=== PATIENT | male | born 1955 | race Caucasian/White ===

== ENCOUNTER 2018-04-25 08:15 | Observation (INO) | payer OTHER ==
[2018-04-25] VITALS (7 sets, daily range): BP systolic 108–111; BP diastolic 56–62
[~2018-04-25] VITALS: Ht 182.9 cm; Wt 122.5 kg
[~2018-04-25 08:15] MED LIST: ASPIRIN BUFFER325 MG PO; CRESTOR10 MG PO; EFFIENT10 MG PO; FUROSEMIDE40 MG PO; GLIMEPIRIDE2 MG PO; LEVEMIR 3M100 UNITS/ SQ; LOSARTAN-HCTZ1 EAC2 PO; METOPROLOL TART25 MG PO; POTASSIUM CHLO10 MEQ PO
[2018-04-25] MEDS ORDERED: MELOXICAM7.5 MG PO (09:06)
[2018-04-25] MEDS ORDERED: XIGDUO PO (09:06)
[2018-04-25] MEDS ORDERED: TRESIBA SQ (09:06)
[2018-04-25 09:18] LABS: BASOPHILS % 0.4 % (0.0-1.0); EOSINOPHILS # (AUTO) 0.1 (0.0-0.4); HEMATOCRIT 43.8 % (38.2-49.6); LYMPHOCYTES # (AUTO) 1.3 (1.0-3.2); LYMPHOCYTES % 19.2 % (18.0-39.1); MEAN CORPUSCULAR HEMOGLOBIN 33.5 pg (28-32); MEAN CORPUSCULAR HGB CONC 36.5 g/dL (31-35); MEAN CORPUSCULAR VOLUME 91.6 fL (81-99); MONOCYTES # (AUTO) 0.6 (0.2-0.8); MONOCYTES % 8.5 % (4.4-11.3); NEUTROPHILS # (AUTO) 4.8 (2.1-6.9); NEUTROPHILS % 70.8 % (38.7-80.0); PLATELET COUNT 196 x10e3/uL (140-360); RED BLOOD COUNT 4.78 x10e6/uL (4.3-5.7); RED CELL DISTRIBUTION WIDTH 11.8 % (11.7-14.4)
[2018-04-25 09:28] LABS: INR 1.06
[2018-04-25 09:29] LABS: PARTIAL THROMBOPLASTIN TIME 29.9 seconds (23.8-35.5)
[2018-04-25 09:40] LABS: ALANINE AMINOTRANSFERASE 24 IU/L (0-55); ALBUMIN 4.2 g/dL (3.5-5.0); ALBUMIN/GLOBULIN RATIO 1.6 (0.8-2.0); ALKALINE PHOSPHATASE 77 IU/L (40-150); ANION GAP 15.2 mmol/L (8-16); BLOOD UREA NITROGEN 15 mg/dL (7-26); BUN/CREATININE RATIO 18 (6-25); CALCIUM 9.5 mg/dL (8.4-10.2); CARBON DIOXIDE 32 mmol/L (22-29); CHLORIDE 98 mmol/L (98-107); CREATININE, SERUM 0.83 mg/dL (0.72-1.25); EST GLOMERULAR FILTRATION RATE > 60 ML/MIN (60-); GLUCOSE 165 mg/dL (74-118); POTASSIUM 4.2 mmol/L (3.5-5.1); SODIUM 141 mmol/L (136-145)
[2018-04-25] MEDS: ENOXAPARIN SODIUM INJ 100 MG/ML SYR SC SCH ×2 (09:54→21:25)
[2018-04-25 10:26] LABS: CREATINE KINASE 121 IU/L (30-200)
[2018-04-25] MEDS ORDERED: NITROGLYCERIN 0.4 MG SUBL SL PRN (11:00)
[2018-04-25] MEDS ORDERED: MORPHINE SULFATE 2 MG/ML SYR IV PRN (11:00)
[2018-04-25] MEDS ORDERED: SODIUM CHLORIDE FLUSH 10 ML SYR INJ PRN (11:00)
[2018-04-25] MEDS ORDERED: ENOXAPARIN SODIUM INJ 100 MG/ML SYR SC SCH (11:00)
[2018-04-25] MEDS ORDERED: ONDANSETRON HCL INJ 2 MG/ML VIAL IV PRN (11:00)
--- NOTE | 2018-04-25 11:17 | Diagnostic Imaging Report ---
PROCEDURE: Frontal and lateral views of the chest. COMPARISON: DX, CHEST SINGLE, 01/03/2012, 18:20. INDICATIONS: CHEST PAIN X 1 DAY FINDINGS: Lines/tubes: None. Lungs: The lungs are well inflated and clear. There is no evidence of pneumonia or pulmonary edema. Pleura: There is no pleural effusion or pneumothorax. Heart and mediastinum: The heart and the mediastinum are normal. Bones: No acute bony abnormality. IMPRESSION: 1. No acute cardiopulmonary disease. Marbella Cabezas M.D. Dictated by: Marbella Cabezas M.D. on 04/25/2018 at 11:21 Electronically approved by: Marbella Cabezas M.D. on 04/25/2018 at 11:21
[2018-04-25] MEDS: FAMOTIDINE 20 MG TAB PO SCH ×3 (11:27→16:45)
[2018-04-25] MEDS: NITROGLYCERIN 2% OINT 1 GM PKT TOP SCH ×2 (11:27→18:05)
[2018-04-25] MEDS: METOPROLOL TARTRATE 25 MG TAB PO SCH ×2 (11:27→21:00)
[2018-04-25] MEDS ORDERED: DEXTROSE 50% SYRINGE 50 ML IV PRN (11:30)
[2018-04-25] MEDS: INSULIN REGULAR, HUMAN 100 UNIT/1 ML 3ML VIAL SQ SCH ×3 (11:30→21:26)
[2018-04-25 17:38] LABS: CREATINE KINASE MB 3.4 ng/mL (0-5.0)
[2018-04-25] MEDS ORDERED: SIMVASTATIN 20 MG TAB PO SCH (21:00)
[2018-04-25 23:59] LABS: CREATINE KINASE MB 3.6 ng/mL (0-5.0)
[2018-04-26] VITALS: BP 100/56
[2018-04-26 06:16] LABS: BASOPHILS % 0.5 % (0.0-1.0); EOSINOPHILS # (AUTO) 0.1 (0.0-0.4); EOSINOPHILS % 1.3 % (0.0-6.0); HEMATOCRIT 40.5 % (38.2-49.6); HEMOGLOBIN 14.7 g/dL (14.0-18.0); LYMPHOCYTES % 31.1 % (18.0-39.1); MEAN CORPUSCULAR HEMOGLOBIN 33.2 pg (28-32); MEAN CORPUSCULAR HGB CONC 36.3 g/dL (31-35); MEAN CORPUSCULAR VOLUME 91.4 fL (81-99); MONOCYTES # (AUTO) 0.6 (0.2-0.8); MONOCYTES % 8.6 % (4.4-11.3); NEUTROPHILS # (AUTO) 3.7 (2.1-6.9); NEUTROPHILS % 58.3 % (38.7-80.0); PLATELET COUNT 178 x10e3/uL (140-360); RED BLOOD COUNT 4.43 x10e6/uL (4.3-5.7); RED CELL DISTRIBUTION WIDTH 11.7 % (11.7-14.4)
[2018-04-26 06:31] LABS: BLOOD UREA NITROGEN 18 mg/dL (7-26); BUN/CREATININE RATIO 25 (6-25); CALCIUM 9.5 mg/dL (8.4-10.2); CARBON DIOXIDE 29 mmol/L (22-29); CHLORIDE 98 mmol/L (98-107); CHOLESTEROL 113 MD/DL (0-199); CREATININE, SERUM 0.71 mg/dL (0.72-1.25); EST GLOMERULAR FILTRATION RATE > 60 ML/MIN (60-); GLUCOSE 122 mg/dL (74-118); SODIUM 138 mmol/L (136-145); TRIGLYCERIDES 158 MG/DL (0-149)
[2018-04-26 06:32] LABS: CHOL/HDL RATIO 3.5 (3.9-4.7); HDL CHOLESTEROL 32 MG/DL (40-60); LDL CHOLESTEROL 49 MG/DL (60-130)
[2018-04-26] MEDS: NITROGLYCERIN 2% OINT 1 GM PKT TOP SCH ×3 (06:37→12:00)
[2018-04-26 07:49] LABS: CREATINE KINASE 103 IU/L (30-200)
[2018-04-26 07:51] VITALS: BP 125/58
[2018-04-26] MEDS: FAMOTIDINE 20 MG TAB PO SCH (08:37)
[2018-04-26] MEDS: METOPROLOL TARTRATE 25 MG TAB PO SCH (08:38)
--- NOTE | 2018-04-26 08:55 | Consultation ---
DATE OF CONSULTATION: April 25, 2018 CARDIOLOGY CONSULTATION REASON FOR CONSULTATION: Chest pain. HPI: This is a 63-year-old male that presented with chest pain. According to the patient, for the last week he has been having difficulty with breathing that has been going off and on for several weeks now. He stated that it gets real worse taking a deep breath and is relieved with movement. He stated that he is being followed up by a gas maker. He has a history of DC in the past medical with stent placement. He stated he has been off and on with his medications. He smokes occasionally. He denies any palpitation, any dizziness, any diaphoresis, or headache. Troponin times 3 was negative. EKG showed normal sinus rhythm with no S/T abnormalities. BNP was 54. PAST MEDICAL HISTORY: Obesity, hypertension, diabetes, CAD, hyperlipidemia, chronic shortness of breath due to right rib pain that has been going on for over 30 years, and diverticulitis. PAST SURGICAL HISTORY: Appendectomy, cardiac catheterization with stent placement, hernia repair, colon resection, and going through pain management with rib doctor. FAMILY HISTORY: Positive for CAD. SOCIAL HISTORY: He lives at home alone and smokes occasionally. MEDICATIONS: See med list. ALLERGIES: HE IS ALLERGIC TO PENICILLIN. REVIEW OF SYSTEMS: Negative except those mentioned above. PHYSICAL EXAMINATION VITAL SIGNS: Temperature 97, heart rate 76, blood pressure 100/56, respirations 18, oxygen saturation 97% on room air. GENERAL: He is obese, awake, alert, and oriented times 3. HEENT: Mucous membrane moist. NECK: Supple. LUNGS: Bilateral clear to auscultation. CARDIOVASCULAR: S1 and S2 present. ABDOMEN: Soft. NEUROLOGIC: Intact. EXTREMITIES: With no edema. LABS: Sodium 138, potassium 4, chloride 98, CO2 29, BUN 18, creatinine 0.71, glucose 122. White blood cells 6.36, hemoglobin 14.7, hematocrit 40.5, and platelets 178,000. PT 13, PTT 29.9 and INR 1.06. IMPRESSION 1. Chest pain with shortness of breath. 2. Coronary artery disease with stent. 3. Diabetes. 4. Hypertension. 5. Hyperlipidemia. 6. Possible musculoskeletal pain due to chronic rib problems and obesity. ASSESSMENT AND PLAN: He had an echocardiogram done with normal EF. Troponin times 3 was negative. Wanted to do a cardiac stress test on him, but he wanted to go home and follow up as an outpatient. Will go ahead and continue his home medications. Will continue statin, beta juan and Lasix. Further cardiac workup pending clinical course. Thank you for this consultation. DICTATED BY JOSE SETH NP Job#: [id number] [place]
[2018-04-26] MEDS: ENOXAPARIN SODIUM INJ 100 MG/ML SYR SC SCH (08:56)
[2018-04-26] MEDS ORDERED: ASPIRIN 325 MG TAB EC PO SCH (09:00)
[2018-04-26] MEDS ORDERED: POTASSIUM CHLORIDE 10 MEQ TABCR PO SCH (09:00)
[2018-04-26] MEDS ORDERED: XIGDUO PO SCH ×2 (09:00)
[2018-04-26] MEDS ORDERED: FUROSEMIDE 40 MG TAB PO SCH (09:00)
[2018-04-26] MEDS ORDERED: HYDROCHLOROTHIAZIDE 25 MG TAB PO SCH (09:00)
[2018-04-26] MEDS ORDERED: TRESIBA 20 UNIT SC SCH (09:00)
[2018-04-26] MEDS ORDERED: LOSARTAN POTASSIUM 100 MG TAB PO SCH (09:00)
[2018-04-26] MEDS ORDERED: MELOXICAM 7.5 MG TAB PO SCH (09:00)
[2018-04-26] MEDS ORDERED: ASPIRIN 81 MG ENTERIC COATED PO SCH (09:00)
[2018-04-26] MEDS: INSULIN REGULAR, HUMAN 100 UNIT/1 ML 3ML VIAL SQ SCH ×2 (09:18→14:34)
[2018-04-26 09:34] VITALS: BP 125/58
[2018-04-26 11:56] VITALS: BP 123/55
--- NOTE | 2018-04-26 13:17 | History and Physical ---
CHIEF COMPLAINT: Left-sided chest discomfort. HISTORY OF PRESENT ILLNESS: This is a 63-year-old white man who states that for at least 6 years he has had difficulty taking deep breaths. The patient states he has undergone musculoskeletal manipulations by chiropractors, which have been somewhat helpful for his condition. The patient states these symptoms seem to have occurred when he underwent coronary artery stent placement in 2011. The patient states that on night, April 24, 2018, one night prior to being admitted, not only did his shortness of breath worsen with inspiration, but he had left-sided chest tightness. The patient states that the chest discomfort was similar to the discomfort he experienced in 2011 when he underwent coronary stent placement. A 12-lead EKG done in the emergency room did not reveal any acute ischemia, but it did reveal chronic ischemic changes. The patient's cardiac enzymes have been unremarkable during this hospitalization. The patient's renal function has been normal during this hospitalization. The patient states the left-sided chest pain has actually resolved. The patient was also seen by cardiology during this hospitalization, but CT of the chest with intravenous contrast was ordered to assess for any pulmonary embolism. Chest x-ray done on admission was unremarkable. REVIEW OF SYSTEMS GENERAL: Weight has been stable. No fever or chills. HEENT: No headaches. No visual changes. CARDIOVASCULAR/RESPIRATORY: Difficulty with initiating deep breaths, which is a chronic issue, but became worse the night prior to admission. The patient also stated that 1 night prior to admission he began experiencing left-sided pleuritic chest pain. Denies any cough or chest congestion. GI: No nausea, vomiting, diarrhea, or constipation. : No BPH or UTI symptoms. NEUROMUSCULAR: The patient states that he feels his left-sided chest discomfort, as well as the difficulty in taking deep breaths secondary to musculoskeletal issues, possibly inflamed left-sided rib. ALLERGIES: PENICILLIN. FAMILY HISTORY: Father had coronary artery disease. In fact, his father underwent coronary artery bypass grafting. SOCIAL HISTORY: The man is single. Lives alone. The patient states he is retired. No history of tobacco. The patient states he quit smoking tobacco and drinking alcohol many years ago. PAST MEDICAL HISTORY 1. Coronary artery disease (coronary artery stent placement in 2011). 2. Obesity. 3. Hypertensive heart disease. 4. Hyperlipidemia. 5. Type 2 diabetes mellitus. MEDICATIONS 1. Aspirin 325 mg daily. 2. Furosemide 40 mg daily. 3. Losartan with hydrochlorothiazide 100 per 12.5 mg daily. 4. Meloxicam 7.5 mg once daily. 5. Potassium chloride 10 mEq daily. 6. Rosuvastatin 200 mg at bedtime. 7. Tresiva insulin 20 units subcutaneous daily. PHYSICAL EXAMINATION GENERAL: He is awake, alert and is pleasant and cooperative with exam. VITALS: Height is 6 feet 0 inches, weight 270 pounds, BMI 36, blood pressure 123/55, pulse 60, respiratory rate 18, temperature 97.3, oxygen saturation 95% on room air. INTEGUMENT: Skin is warm and dry. No pallor or diaphoresis. HEENT: Anicteric sclerae. Moist mucous membranes. NECK: Supple. No evidence of jugular venous distention. CARDIOVASCULAR: Distant heart sounds. Regular rate and rhythm. LUNGS: No rales. No rhonchi or wheezes. ABDOMEN: Obese and benign. EXTREMITIES: No edema or deformity. NEUROLOGIC: Intact. IMPRESSION 1. Atypical chest pain. 2. Coronary artery disease (coronary stents placed in 2011). 3. Diabetes mellitus. 4. Obesity: Body mass index 36. PLAN 1. Rule out myocardial infarction. 2. Agree with cardiology's plan for CT angiogram of the chest to rule out pulmonary embolism. 3. Continue aspirin. 4. Patient will benefit from an exercise stress test in the near future. I spent 40 minutes in the care of this patient. Job#: [id number] MARC[facility]
--- NOTE | 2018-04-26 14:03 | Diagnostic Imaging Report ---
EXAM: CT Chest WITH contrast 04/26/2018 11:38 AM INDICATION: Shortness of breath. \S\r/o PE COMPARISON: Chest x-ray 04/25/2018 TECHNIQUE: Chest was scanned utilizing a multidetector helical scanner from the lung apex through the level of the adrenal glands without administration of IV contrast. Coronal and sagittal reformations were obtained. Routine protocol was performed. IV CONTRAST: 100 mL of Isovue 370 COMPLICATIONS: None RADIATION DOSE: Total DLP: 650.77 mGy*cm Estimated effective dose: (DLP x 0.014 x size factor) mSv CTDIvol has been reviewed. It is below the limits set by the Radiation Protocol Committee (RPC). FINDINGS: LINES/ TUBES: None. LUNGS AND AIRWAYS: Good contrast bolus. No pulmonary emboli. There is bibasilar dependent atelectasis. Few small 3 to 4 mm nodules. Right upper lobe (series 3 image 54). Right middle lobe (series 3 image 64). Airways are normal. PLEURA: The pleural spaces are clear. HEART AND MEDIASTINUM: The thyroid gland is normal. No mediastinal, hilar or axillary lymphadenopathy. The heart is normal in size. There is no pericardial effusion. Atherosclerotic aspirations and a coronary artery with severe in the LAD. Main pulmonary measures 3.4 cm. Ascending aorta measures 4.2 cm. UPPER ABDOMEN: Unremarkable. BONES: The visualized bony thorax is within normal limits. SOFT TISSUES: Unremarkable. IMPRESSION: 1. No pulmonary emboli. 2. A few small 3 to 4 mm nodules in the right upper and right middle lobes. These are nonspecific but may represent recent infection. Signed by: Dr. Nikko Medina M.D. on 04/26/2018 1:59 PM
--- NOTE | 2018-04-26 15:07 | Discharge Summary ---
ADMIT DIAGNOSES 1. Atypical chest pain. 2. Coronary artery disease (history of coronary stent placement in 2011). 3. Diabetes mellitus. 4. Obesity. Body mass index 36. DISCHARGE DIAGNOSES 1. Atypical chest pain, resolved. 2. Coronary artery disease (coronary stent placed in 2011). 3. Diabetes mellitus. 4. Obesity. Body mass index 36. HOSPITAL COURSE: This is a 63-year-old white male who was initially admitted to [facility] with the diagnosis of left-sided atypical chest pain. The patient underwent serial cardiac enzymes during this hospitalization, which did not reveal any acute myocardial ischemia or infarction. The patient's brief hospitalization was unremarkable. During this hospitalization, the patient was seen by cardiology, namely Dr. Bee. The patient stated that he was adamant about being discharged home. The patient's chest pain resolved during this hospitalization. During the hospital stay, the patient was found to have an LDL and HDL cholesterol of 49 and 32 mg/dL. The patient underwent a CT of the chest with intravenous contrast during this hospital stay, which did not reveal any evidence of pulmonary embolism, but did reveal nonspecific 3-4 mm nodules in the right upper and right middle lobes. The patient's hospitalization was unremarkable. CONDITION AT DISCHARGE: Stable. DISCHARGE MEDICATIONS 1. Aspirin 325 mg daily. 2. Furosemide 40 mg daily. 3. Losartan with hydrochlorothiazide 100 per 12.5 mg daily. 4. Meloxicam 7.5 mg daily. 5. Potassium chloride 10 mEq daily. 6. Rosuvastatin 20 mg at bedtime. 7. Tresiba insulin 20 units subcutaneous daily. FOLLOWUP INSTRUCTIONS: The patient was instructed to follow up with Dr. Bee, his cuff maker on Sunday, April 29, 2018, for an outpatient cardiac stress test. The patient was instructed to return to the nearest emergency room if he has any recurrence of chest discomfort or pain. FATEMEH JENSEN MD Job#: [id number] [place]
[2018-04-26] MEDS ORDERED: SODIUM CHLORIDE 0.9% 50ML 50 ML ONE (16:48)
[2018-04-26] MEDS ORDERED: IOPAMIDOL 370 MG/ML 200 ML INFUS..BTL INJ ONE (16:48)
== END 2018-04-26 15:30 | disposition home or self-care (01) ==
LOC: ER 08:15 → ERHOLD 11:03 → IMCU 12:39 → MED/SURG 17:23
DX: R07.89 Other chest pain (principal); I11.0 Hypertensive heart disease with heart failure; I50.9 Heart failure, unspecified; E11.9 Type 2 diabetes mellitus without complications; I25.10 Atherosclerotic heart disease of native coronary artery without angina pectoris; E78.5 Hyperlipidemia, unspecified; I11.9 Hypertensive heart disease without heart failure; Z95.5 Presence of coronary angioplasty implant and graft; E66.9 Obesity, unspecified; Z68.36 Body mass index [BMI] 36.0-36.9, adult; Z88.0 Allergy status to penicillin; Z82.49 Family history of ischemic heart disease and other diseases of the circulatory system; R91.8 Other nonspecific abnormal finding of lung field
CPT/HCPCS: 36415 ×2; 71046; 71260; 80048; 80053; 80061; 82550 ×2; 82553 ×2; 82948 ×2; 83880; 84484 ×2; 85025 ×2; 85379; 85610; 85730; 93005; 93306; 99284; G0378 ×2; J1650 ×2; Q9967

== ENCOUNTER → 2018-09-09 | Day surgery (SDC) | payer OTHER ==
[~2018-09-09] MED LIST changes: +FENTANYL CITRATE/PF 100MCG/2 ML INJ ONE; +MELOXICAM7.5 MG PO; +MIDAZOLAM HCL 2 MG/2 ML VIAL ONE; +OR PHACO EYE KIT ONE; +PREOP PHACO EYE KIT ONE; +TRESIBA SQ; +VITAMIN B COMP1 EACH; +VITAMIN C1000 MG; +XIGDUO; +XIGDUO PO
--- OUTSIDE RECORDS SUMMARY | 2018-09-09 10:15 | XMS REPORT ---
Author Author [facility] Address Unknown Phone Unavailable Care Team Providers Care Heel Caser Name Role Phone MARTA JUAREZ Unavailable Unavailable Problems This patient has no known problems. Allergies, Adverse Reactions, Alerts This patient has no known allergies or adverse reactions. Medications This patient has no known medications. Results Test Description Test Time Test Comments Text Results Atomic Results Result Comments CT CHEST W 2018-04-26 13:41:00 [place] [address] Patient Name: SISSY VARGAS MR #: [id number] : 1955 Age/Sex: 63/M Req #: [id number] [facility] Physician: MARTA JUAREZ MD Ordered by: LONI LOPEZ MD Report #: [id number] Location: MED/SURG Room/Bed: [facility] Procedure: [id number] CT/CT CHEST W Exam Date: 04/26/18 Exam Time: 1309 REPORT STATUS: Signed EXAM: CT Chest WITH contrast 04/26/2018 11:38 AM INDICATION: Shortness of breath. S r/o PE COMPARISON: Chest x-ray 04/25/2018 TECHNIQUE: Chest was scanned utilizing a multidetector helical scanner from the lung apex through the level of the adrenal glands without administration of IV contrast. Coronal and sagittal reformations were obtained. Routine protocol was performed. IV CONTRAST: 100 mL of Isovue 370 COMPLICATIONS: None RADIATION DOSE: Total DLP: 650.77 mGy*cm Estimated effective dose: (DLP x 0.014 x size factor) mSv CTDIvol has been reviewed. It is below the limits set by the Radiation Protocol Committee (RPC). FINDINGS: LINES/ TUBES: None. LUNGS AND AIRWAYS: Good contrast bolus. No pulmonary emboli. There is bibasilar d ependent atelectasis. Few small 3 to 4 mm nodules. Right upper lobe (series 3 image 54). Right middle lobe (series 3 image 64). Airways are normal. PLEURA: The pleural spaces are clear. HEART AND MEDIASTINUM: The thyroid gland is normal. No mediastinal, hilar or axillary lymphadenopathy. The heart is normal in size. There is no pericardial effusion. Atherosclerotic aspirations and a coronary artery with severe in the LAD. Main pulmonary measures 3.4 cm. Ascending aorta measures 4.2 cm. UPPER ABDOMEN: Unremarkable. BONES: The visualized bony thorax is within normal limits. SOFT TISSUES: Unremarkable. IMPRESSION: 1. No pulmonary emboli. 2. A few small 3 to 4 mm nodules in the right upper and right middle lobes. These are nonspecific but may represent recent infection. Signed by: Dr. Aamir Whitt M.D. on 04/26/2018 1:59 PM Dictated By: AAMIR WHITT MD [id number] Transcribed By: RIA on 04/26/18 1358 COPY TO: LONI LOPEZ MD CHEST 2 VIEWS 2018-04-25 11:21:00 [place] [address] Patient Name: SISSY VARGAS MR #: [id number] : 1955 Age/Sex: 63/M Req #: [id number] Adm Physician: MARTA JUAREZ MD Ordered by: DION CARREON MD Report #: [id number] Location: [facility] Room/Bed: [place] [address] Procedure: [id number] DX/CHEST 2 VIEWS Exam Date: 04/25/18 Exam Time: 1031 REPORT STATUS: Signed PROCEDURE: Frontal and lateral views of the chest. COMPARISON: DX, CHEST SINGLE, 01/03/2012, 18:20. INDICATIONS: CHEST PAIN X 1 DAY FINDINGS: Lines/tubes: None. Lungs: The lungs are well inflated and clear. There is no evidence of pneumonia or pulmonary edema. Pleura: There is no pleural effusion or pneumothorax. Heart and mediastinum: The heart and the mediastinum are normal. Bones: No acute bony abnormality. IMPRESSION: 1. No acute cardiopulmonary disease. Marbella Schulte M.D. Dictated by: Marbella Schulte M.D. on 04/25/2018 at 11:21 Electronically approved by: Marbella Schulte M.D. on 04/25/2018 at 11:21 Dictated By: KAYLEIGH SCHULTE MD, MD 1121 Transcribed By: JAYDEN on 04/25/18 1121 COPY TO: DION CARREON MD
--- OUTSIDE RECORDS SUMMARY | 2018-09-09 10:15 | XMS REPORT | Clinical Summary ---
Author Author [facility] Address Unknown Phone Unavailable Care Team Providers Care Barrel Roller Name Role Phone Asked, No Pcp PCP Unavailable Allergies Not on File Current Medications Prescription Sig. Disp. Refills Start End Date Status Date furosemide (LASIX) 40 mg Take 40 mg by mouth 3 03/24/20 Active tablet daily. 18 clindamycin (CLEOCIN) 300 TAKE ONE CAPSULE BY MOUTH 0 01/03/20 Active MG capsule EVERY 6 HOURS 18 ibuprofen (ADVIL,MOTRIN) TAKE 1 TABLET BY MOUTH 0 01/03/20 Active 600 MG tablet EVERY 8-12 HOURS 18 NEEDED FOR PAIN TAKE WITH FOOD losartan-hydrochlorothiaz Take 1 tablet by mouth 3 01/22/20 Active carin (HYZAAR) 100-12.5 mg daily. 18 per tablet KLOR-CON SPRINKLE 10 mEq TAKE 1 CAPSULE BY MOUTH 3 02/25/20 Active CR capsule EVERY DAY WITH FOOD 18 rosuvastatin (CRESTOR) 10 Take 10 mg by mouth 3 03/24/20 Active MG tablet daily. 18 SUPREP BOWEL PREP KIT TAKE 1 BOTTLE DISSOLVED 0 03/19/20 Active 17.5-3.13-1.6 gram recon IN WATER TWICE A DAY 18 soln DIRECTED traMADol (ULTRAM) 50 mg Take 50 mg by mouth every 0 01/03/20 Active tablet 6 (six) hours as needed. 18 for pain Active Problems Problem Noted Date Achilles tendon rupture, right, initial encounter 03/27/2018 Encounters Date Type Specialty Care Team Description 08/13/2018 Telephone Orthopedic Surgery Gracy Bailey MA 07/25/2018 Telephone Orthopedic Surgery Gracy Bailey MA 03/31/2018 Telephone Orthopedic Surgery Gracy Bailey MA 03/27/2018 Hospital Radiology See Mitchell MD Encounter 03/27/2018 Office Visit Orthopedic Surgery See Mitchell MD Achilles tendon rupture, right, initial encounter (Primary Dx) 03/27/2018 Procedure Pass Radiology 03/27/2018 Ancillary Radiology See Mitchell MD Orders after 09/08/2017 Family History Medical History Relation Name Comments Diabetes Mother Rhona Type Relation Name Status Comments Mother Rhona Social History Tobacco Use Types Packs/Day Years Used Date Never Assessed Alcohol Use Drinks/Week oz/Week Comments No Sex Assigned at Date Recorded Not on file Last Filed Vital Signs Not on file Plan of Treatment Date Type Specialty Care Team Description 10/15/2018 Surgery Orthopedic Surgery See Mitchell MD OPEN REPAIR ACHILLES [address] [place], [facility] TRANSFER TO [address] [place], RIGHT ?>? [place] [address] [phone] 10/15/2018 Procedure Pass Orthopedic Surgery 10/15/2018 [facility] Orthopedic Surgery See Mitchell MD Encounter [address] [place], [place] [id number] Health Maintenance Due Date Last Done Comments COLON CANCER SCREENING 2005 SHINGRIX VACCINE (#1) 2005 ZOSTER VACCINE 2015 INFLUENZA VACCINE 06/11/2018 Procedures Procedure Name Priority Date/Time Associated Diagnosis Comments MRI LOWER EXTREMITY Routine 02/10/2018 Results for this EXTERNAL STUDY 9:39 AM CDT procedure are in the results section. after 09/08/2017 Results * MRI Lower Extremity External Study (02/10/2018 9:39 AM) Narrative Performed At This exam was not acquired at a [facility] facility and has not been [facility] interpreted by a [facility] Provider.The exam was imported into our imaging system for comparisons purposes. Performing Organization Address City/State/Zipcode Phone Number [facility] [address] [place] [address] after 09/08/2017 Insurance Payer Benefit Subscriber ID Type Phone Address Plan / Group AETNA AETNA PPO xxxxxxxxxx PPO OPEN CHOICE
--- OUTSIDE RECORDS SUMMARY | 2018-09-12 10:17 | XMS REPORT | Clinical Summary ---
Author Author [facility] Address Unknown Phone Unavailable Care Team Providers Care Apparel Merchandiser Name Role Phone Asked, No Pcp PCP [...] Ancillary Radiology See Mitchell MD Orders after 09/11/2017 Family History Medical History Relation Name Comments [...] TRANSFER TO [address] [place], RIGHT ?>? [place] [address] [phone] 10/15/2018 Procedure Pass Orthopedic Surgery 10/15/2018 [facility] Orthopedic Surgery See Mitchell MD Encounter [address] [place], [place] [id number] Health Maintenance Due Date Last Done Comments COLON CANCER SCREENING 2005 SHINGRIX VACCINE (#1) 2005 ZOSTER VACCINE 2015 INFLUENZA VACCINE 06/11/2018 Procedures Procedure Name Priority Date/Time Associated Diagnosis Comments MRI LOWER EXTREMITY Routine 02/10/2018 Results for this EXTERNAL STUDY 9:39 AM CDT procedure are in the results section. after 09/11/2017 Results * MRI Lower Extremity External Study (02/10/2018 9:39 AM) Narrative Performed At This exam was not acquired at a [facility] facility and has not been [facility] interpreted by a [facility] Provider.The exam was imported into our imaging system for comparisons purposes. Performing Organization Address City/State/Zipcode Phone Number [facility] [address] [place] [address] after 09/11/2017 Insurance Payer Benefit Subscriber ID Type Phone Address Plan / Group AETNA AETNA PPO xxxxxxxxxx PPO OPEN CHOICE
== END | disposition home or self-care (01) ==
LOC: OR 10:12
PROVIDERS: ATTEND Ophthalmology
DX: H25.12 Age-related nuclear cataract, left eye (principal); I10 Essential (primary) hypertension; E78.5 Hyperlipidemia, unspecified; I34.0 Nonrheumatic mitral (valve) insufficiency; E11.9 Type 2 diabetes mellitus without complications; Z79.4 Long term (current) use of insulin; Z79.84 Long term (current) use of oral hypoglycemic drugs; K21.9 Gastro-esophageal reflux disease without esophagitis; Z87.891 Personal history of nicotine dependence; Z79.82 Long term (current) use of aspirin
CPT/HCPCS: 36415; 66984; 82948; J2250; V2632

== ENCOUNTER → 2018-09-16 | Day surgery (SDC) | payer OTHER ==
--- OUTSIDE RECORDS SUMMARY | 2018-09-16 09:42 | XMS REPORT | Clinical Summary ---
Author Author [facility] Address Unknown Phone Unavailable Care Team Providers Care Block Machine Operator Name Role Phone Asked, No Pcp PCP [...] Ancillary Radiology See Mitchell MD Orders after 09/15/2017 Family History Medical History Relation Name Comments [...] See Mitchell MD OPEN REPAIR ACHILLES [address] [place], [employer] TRANSFER TO [place], RIGHT ?>? 10/15/2018 Procedure Pass Orthopedic Surgery 10/15/2018 Hospital Orthopedic Surgery See Mitchell MD Encounter [address] [facility] Health Maintenance Due Date Last Done Comments COLON CANCER SCREENING 2005 SHINGRIX VACCINE (#1) 2005 ZOSTER VACCINE 2015 INFLUENZA VACCINE 06/11/2018 Procedures Procedure Name Priority Date/Time Associated Diagnosis Comments MRI LOWER EXTREMITY Routine 02/10/2018 Results for this EXTERNAL STUDY 9:39 AM CDT procedure are in the results section. after 09/15/2017 Results * MRI Lower Extremity External Study (02/10/2018 9:39 AM) Narrative Performed At This exam was not acquired at a [facility] facility and has not been [facility] interpreted by a [facility] Provider.The exam was imported into our imaging system for comparisons purposes. Performing Organization Address City/State/[place] Phone Number [facility] [address] [place] [address] after 09/15/2017 Insurance Payer Benefit Subscriber ID Type Phone Address Plan / Group AETNA AETNA PPO xxxxxxxxxx PPO OPEN CHOICE
[2018-09-16 13:30] VITALS: BP 132/84
== END | disposition home or self-care (01) ==
LOC: OR 09:39
PROVIDERS: ATTEND Ophthalmology
DX: H25.11 Age-related nuclear cataract, right eye (principal); E11.9 Type 2 diabetes mellitus without complications; I10 Essential (primary) hypertension; I25.10 Atherosclerotic heart disease of native coronary artery without angina pectoris; Z95.5 Presence of coronary angioplasty implant and graft; I51.7 Cardiomegaly; I49.3 Ventricular premature depolarization; K21.9 Gastro-esophageal reflux disease without esophagitis; Z79.82 Long term (current) use of aspirin; Z79.84 Long term (current) use of oral hypoglycemic drugs
CPT/HCPCS: 36415; 66984; 82948; J2250; V2632

== ENCOUNTER → 2023-07-29 | Outpatient (CLI) | payer MEDICARE ==
[~2023-07-29] MED LIST changes: +DIOVAN HCT 3201 EAC1; -FENTANYL CITRATE/PF 100MCG/2 ML INJ ONE; +LIDOCAINE HCL 5% OINMENT 35.44 GM TUBE TP ONE; -MIDAZOLAM HCL 2 MG/2 ML VIAL ONE; +OMEPRAZOLE40 MG PO; -OR PHACO EYE KIT ONE; -PREOP PHACO EYE KIT ONE
== END ==
LOC: WCC 11:02
PROVIDERS: ATTEND Internal Medicine Infectious Disease
DX: E11.621 Type 2 diabetes mellitus with foot ulcer (principal); L97.521 Non-pressure chronic ulcer of other part of left foot limited to breakdown of skin; L97.522 Non-pressure chronic ulcer of other part of left foot with fat layer exposed; L97.422 Non-pressure chronic ulcer of left heel and midfoot with fat layer exposed; L97.511 Non-pressure chronic ulcer of other part of right foot limited to breakdown of skin; L97.512 Non-pressure chronic ulcer of other part of right foot with fat layer exposed; L97.821 Non-pressure chronic ulcer of other part of left lower leg limited to breakdown of skin; L97.818 Non-pressure chronic ulcer of other part of right lower leg with other specified severity; L97.828 Non-pressure chronic ulcer of other part of left lower leg with other specified severity; I87.312 Chronic venous hypertension (idiopathic) with ulcer of left lower extremity; I87.311 Chronic venous hypertension (idiopathic) with ulcer of right lower extremity; I87.2 Venous insufficiency (chronic) (peripheral); R60.0 Localized edema; I50.40 Unspecified combined systolic (congestive) and diastolic (congestive) heart failure; I10 Essential (primary) hypertension